=== PATIENT | female | born 1960 | race Caucasian/White ===

== ENCOUNTER 2016-10-26 19:40 | Emergency (ER) | payer MEDICAID ==
[~2016-10-26] VITALS: Ht 162.6 cm; Wt 70.7 kg
[~2016-10-26 19:40] MED LIST: BUSP5TAB2 PO; HYDR50TA13 PO; LAMO200T3 PO; NAPR500T3 PO; SERT50TA PO; SULF1TAB24 PO; TRAZ100T15 PO
[2016-10-26 19:45] VITALS: BP 120/86
[2016-10-26] MEDS ORDERED: BUSP10TA PO (21:23)
[2016-10-26] MEDS ORDERED: CEPHALEXIN 500 MG CAPSULE PO ONE (22:00)
[2016-10-26] MEDS ORDERED: SULFAMETH./TRIMETHOPRIM DS 800MG/160MG TABLET PO ONE (22:00)
[2016-10-26] MEDS ORDERED: SULFAMETH./TRIMETHOPRIM DS 800MG/160MG TABLET ONE (22:06)
[2016-10-26] MEDS ORDERED: CEPHALEXIN 500 MG CAPSULE ONE (22:07)
== END 2016-10-26 22:13 | disposition home or self-care (01) ==
LOC: ED 22:07
DX: J34.0 Abscess, furuncle and carbuncle of nose (principal); F17.210 Nicotine dependence, cigarettes, uncomplicated
CPT/HCPCS: 10060; 99283

== ENCOUNTER 2017-07-02 02:22 | Emergency (ER) | payer MEDICAID ==
[~2017-07-02] VITALS: Ht 162.6 cm; Wt 67.3 kg
[~2017-07-02 02:22] MED LIST changes: +BUSP10TA PO; -NAPR500T3 PO; +NAPR500T4 PO
[2017-07-02 02:23] VITALS: BP 132/85
[2017-07-02 02:58] LABS: BASOPHILS # (AUTO) 0.03 x10^3/uL (0-0.1); BASOPHILS % (AUTO) 1 % (0-1); EOSINOPHILS % (AUTO) 4 % (1-7); LYMPHOCYTES # (AUTO) 1.65 x10^3/uL (1-3.4); LYMPHOCYTES % (AUTO) 35 % (22-44); MD NO; MEAN CORPUSCULAR HEMOGLOBIN 31.4 pg (27.0-34.8); MEAN CORPUSCULAR HGB CONC 33.8 g/dL (32.4-35.8); MEAN CORPUSCULAR VOLUME 92.7 fL (80-100); MEAN PLATELET VOLUME 7.9 fL (7.4-10.4); MONOCYTES # (AUTO) 0.49 x10^3/uL (0.2-0.8); MONOCYTES % (AUTO) 10 % (2-9); NEUTROPHILS # (AUTO) 2.41 x10^3/uL (1.8-6.8); NEUTROPHILS % (AUTO) 50 % (42-75); PLATELET COUNT 297 x10^3/uL (130-400); RED BLOOD COUNT 4.21 x10^6/uL (3.82-5.3); RED CELL DISTRIBUTION WIDTH 13.4 % (9.6-15.2)
[2017-07-02 03:07] LABS: ANION GAP 6 mmol/L (5-15); CALCIUM 8.6 mg/dL (8.5-10.1); CHLORIDE 109 mmol/L (98-107); CREATININE 0.74 mg/dL (0.55-1.02)
[2017-07-02 03:11] LABS: TROPONIN I 0.037 ng/mL (0.000-0.045)
== END 2017-07-02 04:08 | disposition home or self-care (01) ==
LOC: ED 03:22
DX: R05 Cough (principal); R06.02 Shortness of breath; F31.9 Bipolar disorder, unspecified; J44.9 Chronic obstructive pulmonary disease, unspecified; F17.200 Nicotine dependence, unspecified, uncomplicated; Z88.1 Allergy status to other antibiotic agents
CPT/HCPCS: 36415; 71045; 80048; 82040; 84484; 85025; 93005; 99285

== ENCOUNTER 2019-06-02 07:49 | Emergency (ER) | payer SELFPAY ==
[~2019-06-02] VITALS: Ht 162.6 cm; Wt 68.1 kg
[~2019-06-02 07:49] MED LIST changes: +NAPR-685 PO; -NAPR500T4 PO; +TRAZ-137 PO; -TRAZ100T15 PO
--- NOTE | 2019-06-02 08:03 | NUR ---
PATIENT BROUGHT BACK FROM TRIAGE WITH CHIEF COMPLAINT OF RIGHT KNEE/LEG PAIN WITH SWELLING, CMS INTACT. THE PATIENT IS ALERT, ORIENTED, WARM AND DRY.
--- NOTE | 2019-06-02 08:35 | NUR ---
PATIENT TO IMAGING
[2019-06-02 09:29] VITALS: BP 123/82
--- NOTE | 2019-06-02 09:29 | NUR ---
DISCHARGE INSTRUCTIONS REVIEWED, BRACE AND CRUTCHES PROVIDED.
== END 2019-06-02 09:57 | disposition home or self-care (01) ==
LOC: ED 08:43
DX: M25.561 Pain in right knee (principal); M13.861 Other specified arthritis, right knee; J44.9 Chronic obstructive pulmonary disease, unspecified
CPT/HCPCS: 29505; 99283

== ENCOUNTER 2020-05-23 22:38 | Emergency (ER) | payer OTHER ==
[~2020-05-23] VITALS: Ht 162.6 cm; Wt 68.4 kg
[~2020-05-23 22:38] MED LIST changes: -HYDR50TA13 PO; +HYDR50TA99 PO; -TRAZ-137 PO; +TRAZ-175 PO
[2020-05-23] MEDS ORDERED: KETOROLAC 30 MG/1 ML IM ONE (23:00)
[2020-05-23] MEDS ORDERED: KETOROLAC 30 MG/1 ML ONE (23:02)
[2020-05-23 23:55] VITALS: BP 137/74
== END 2020-05-23 23:57 | disposition home or self-care (01) ==
LOC: ED 22:51
DX: M25.512 Pain in left shoulder (principal); R25.2 Cramp and spasm; J44.9 Chronic obstructive pulmonary disease, unspecified; M19.90 Unspecified osteoarthritis, unspecified site
CPT/HCPCS: 73030; 96372; 99283; J1885

== ENCOUNTER 2021-03-01 14:12 | Emergency (ER) | payer MEDICAID ==
[~2021-03-01] VITALS: Ht 162.6 cm; Wt 68.9 kg
[~2021-03-01 14:12] MED LIST changes: +SULF-23 PO; -SULF1TAB24 PO
--- NOTE | 2021-03-01 16:15 | NUR ---
superintendent track note: Pt to room from lobby.
[2021-03-01 16:21] VITALS: BP 146/74
--- NOTE | 2021-03-01 16:22 | NUR ---
PT AMBLATES FROM ROOM WITHOUT COMPLICATIONS. VSS
== END 2021-03-01 16:58 | disposition left against medical advice (07) ==
LOC: ED 15:00
DX: B34.9 Viral infection, unspecified (principal); R06.02 Shortness of breath; Z20.822 Contact with and (suspected) exposure to COVID-19; J44.9 Chronic obstructive pulmonary disease, unspecified
CPT/HCPCS: 71045; 93005; 99285; U0003; U0005